=== PATIENT | female | born 1950 | race Caucasian/White ===

== ENCOUNTER 2025-04-29 08:42 | Day surgery (SDC) | payer OTHER, SELFPAY ==
[2025-04-29] VITALS (7 sets, daily range): BP systolic 106–122; BP diastolic 57–74; PULSE 79–102; RESP 16–20; TEMP 36.1–37.1; O2SAT 94–100; BMI 20.3; BMI 19.5
--- NOTE | 2025-04-29 | DI.RAD.S_ITS ---
PROCEDURE: XR ANKLE RT MIN 3V INDICATIONS: ORIF RT ANKLE TECHNIQUE: 3 intraoperative fluoroscopic views of the ankle were acquired. COMPARISON: Outside Facility, CR, XR ANKLE RT MIN 3V, 04/21/2025, 11:36. FINDINGS: Bones: Intraoperative fluoroscopic images shows internal fixation of distal fibular shaft and medial malleolus . Ankle mortise is near anatomic. IMPRESSION: Fluoro guidance was provided intraoperatively for ORIF of ankle joint performed by ordering physician. Dictated by: Ace Hong M.D. on 04/29/2025 at 16:18 Approved by: Ace Hong M.D. on 04/29/2025 at 16:19
--- NOTE | 2025-04-29 | DI.RAD.S_ITS ---
PROCEDURE: XR ANKLE RT MIN 3V INDICATIONS: post operative imaging TECHNIQUE: 3 views of the ankle were acquired. COMPARISON: Outside Facility, RG, CT LOWER EXTREMITY W/O CONTRAST, 04/21/2025, 11:37. [facility], CR, XR ANKLE RT MIN 3V, 04/29/2025, 11:47. Outside Facility, CR, XR ANKLE RT MIN 3V, 04/21/2025, 11:36. FINDINGS: Bones: Postsurgical changes from interval internal fixation of previously seen trimalleolar fracture-dislocation with temple of anatomic alignment. Overlying cast material obscures fine bony detail. Soft tissues: Soft tissue edema surrounds the ankle. IMPRESSION: Status post internal fixation of previously seen trimalleolar fracture- dislocation with improved alignment. Approved by: Art Joseph M.D. on 04/29/2025 at 14:58
[2025-04-29] MEDS: ACETAMINOPHEN 325 MG TABLET 975 MG PO (09:47)
[2025-04-29] MEDS: LACTATED RINGERS 1,000 ML 42 ML IV ×2 (09:48→12:53)
--- NOTE | 2025-04-29 10:12 | EKG_ITS ---
[address] [address] Test Date: 2025-04-29 Pat Name: Marzena Calero Department: Room: Gender: Female Animation Artist: Fritz OSHEA : 1950 Requested By: Order Number: [id number] Reading MD: Chandler Quinones MD Measurements Intervals [place] Rate: 75 P: 49 ME: 148 QRS: 53 QRSD: 82 T: 49 QT: 370 QTc: 413 Interpretive Statements Normal sinus rhythm Electronically Signed On 04-29-2025 11:27:14 PDT by Chandler Quinones MD
--- NOTE | 2025-04-29 10:25 | PM.PREOP ---
Pre-operative Note Interval Note History & Physical reviewed/Exam performed by Physician: Yes Changes to H&P: No
[2025-04-29] MEDS: CEFAZOLIN 2 GM/100 ML PREMIX 100 ML IV (10:40)
--- NOTE | 2025-04-29 11:06 | SUR.OPER ---
Supine on padded OR bed, head on pillow, arms secured on padded arm boards at <90 degrees abduction, legs uncrossed, safety belt at thigh.
[2025-04-29] MEDS: BUPIVACAINE 0.25% (PF) VIAL 30 ML INJ (11:19)
--- NOTE | 2025-04-29 13:29 | PM.OP.1 ---
Operative Date/Time/Diagnoses Date of procedure: 04/29/25 Time of procedure: 13:50 Pre-op diagnosis: Unstable right ankle fracture Post-op diagnosis: same Procedure & Clinicians Procedure: ORIF of the RIGHT Ankle Same procedure(s) as scheduled: Yes Surgeon: Moise Lynn Anesthesia Type: General Operative Notes Findings: Unstable ankle fracture Applied: other Estimated Blood Loss (mL): 20 Procedure in detail: Laterality: Right Preoperative diagnosis: Unstable right ankle fracture dislocation Procedure performed: Open Reduction Internal Fixation of Ankle Fracture Postoperative diagnosis: Same Primary Surgeon: Moise Lynn MD Secondary Surgeon: KOSTA Delgado Physician Computer Instructor was used throughout the entirety of the case. This operation could not have been safely performed (without compromising the technical results or length of the procedure) without the assistance of a skilled oncology physician assistant. A oncology physician assistant was medically necessary for room set up, patient positioning, draping, retraction, visualization, reduction, fixation and closure. They were essential for the success of the case. Anesthesia: General EBL: 20 ml Tourniquet: 120 minutes @ 250 mmHg Implants: [employer] screws and plates; bone putty and chips; Invisiknot Indication For Surgery: The patient sustained an unstable ankle fracture which required surgery to restore stability and anatomic length, alignment, and rotation. The risks, benefits, and alternatives were discussed. Risks include pain, bleeding, infection, damage to nearby structures and cartilage, lack of symptom relief, malunion, nonunion, implant complications with need for removal, need for further surgery, DVT, PE, stroke, and . Written consent was obtained. Examination Under Anesthesia: An unstable ankle Operative Findings: Unstable right ankle fracture dislocation; on removal of her splint it was found that she had fracture blisters on the medial and lateral aspect of the ankle. The medial fracture blister had already released its fluids. We used a spinal needle at the beginning to remove the fluid from the lateral fracture blister. Procedure in Detail: The patient was met in the pre-operative hold area. Consent was verified and operative extremity was signed. The patient then met with anesthesia and was brought back to the operating room. The patient was placed supine on the operating table. A general anesthetic was administered. The extremity was then prepped and draped in the usual sterile fashion. A timeout was performed per protocol. All were in agreement and we proceeded. A medial incision was made over the medial malleolus. A portion of this incision was through the medial fracture blister. We easily identified the fracture site and cleared this with scalpel, rongeur and curette. We then placed a reduction maneuver with medial displacement of the calcaneus which brought the medial malleolus back into position. After multiple attempts with a [id number] reduction and dental pick we are able to get the reduction in place. K-wires were placed and these were checked under fluoroscopy which confirmed the reduction and the placement of the wires. These were then replaced with 4-0 cancellous screws. We then changed our attention to the lateral malleolar fracture. A direct lateral approach to the lateral malleolus was made. Sharp dissection was carried out distally and scissor dissection proximally. The superficial peroneal nerve was sought out but not seen during the case. The fracture site was identified and 2mm of periosteum was freed to allow for an adequate assessment of fracture reduction. There was significant comminution especially on the lateral cortex of the fracture. Given the significant comminution we decided to bridge plate. A locking lateral distal fibular plate was chosen. With traction and medial direction of the talus we locked the plate in the place with a BB tack. We then filled the distal plate with locking screws in the distal fragment. Then we placed a 3.5 cortical screws throughout the proximal portion of the plate. Given the continued displacement and instability of the ankle we decided to place a Invisiknot between the tibia and fibula. The reduction was maintained throughout. Final images were taken. The wound was closed in a layered fashion with 0-vicryl in the deep tissues, covering the plate, 2-0 in the dermis, and running nylon in the skin. Local anesthetic was placed. Xeroform was placed over the incision and sites of fracture bliseters. A sterile dressing and splint were applied. The patient was awakened and transferred to the recovery room. Postoperative Plan: Same day surgery discharge NWB with splint for 2 weeks Follow up in 2 weeks Moise Lynn MD Complications: none Post-operative Condition: stable Disposition: PACU
== END 2025-04-29 15:21 | disposition home or self-care (01) ==
PROVIDERS: Referring Provider Orthopaedic Surgery; Visit Provider Orthopaedic Surgery
PROC: 0SSF04Z Reposition Right Ankle Joint with Internal Fixation Device, Open Approach (ICD-10-PCS; CPT 27822; principal; 2025-04-29 10:15)
DX: S82.851A Displaced trimalleolar fracture of right lower leg, initial encounter for closed fracture (principal); W01.0XXA Fall on same level from slipping, tripping and stumbling without subsequent striking against object, initial encounter; Y93.89 Activity, other specified; Y92.830 Public park as the place of occurrence of the external cause; F41.9 Anxiety disorder, unspecified; R25.1 Tremor, unspecified
CPT/HCPCS: 27822; 73610; 76000; 93005; 93010; C1713; J0690; J1171; J1885; J2250; J2704; J3010; J3490